=== PATIENT | female | born 1950 | race Caucasian/White ===

== ENCOUNTER 2017-02-18 11:13 | Inpatient (IN) ==
[2017-02-13 13:08] LABS: Basophils # (Auto) 0 K/mcL (0.0-0.3); Basophils % (Auto) 0.3 % (0.0-2.0); Eosinophils # (Auto) 0 K/mcL (0.0-0.7); Granulocytes % (Auto) 66.7 % (38.0-78.0); Lymphocytes % (Auto) 21.6 % (15.5-49.0); Mean Cell Volume 90.7 fL (80.0-100.0); Mean Corpuscular HGB Conc 34.6 g/dL (31.0-36.0); Mean Corpuscular Hemoglobin 31.4 pg (26.0-34.0); Monocytes # (Auto) 0.5 K/mcL (0.1-0.9); Monocytes % (Auto) 10.4 % (1.0-12.0); Platelet Count 170 K/mcL (140-440); RBC 3.93 M/mcL (4.00-5.20); Red Cell Distribution Width 12.3 % (11.5-14.5)
[2017-02-13 13:42] LABS: Blood Urea Nitrogen 9 mg/dl (8-23)
[2017-02-13 15:56] LABS: Appearance,Urine CLEAR; Bacteria,Urine 0 /hpf (0); Bilirubin,Urine NEG (NEG); Color,Urine YELLOW; Glucose,Urine (UA) NORM (NEG); Leukocyte Esterase,Urine NEG /uL (NEG); Nitrate,Urine NEG (NEG); Protein,Urine NEG (NEG); Specific Gravity,Urine 1.004 (1.000-1.035); Urine Blood TRACE ery/mcL (<5); Urine RBC 1 /hpf (0-1); Urine Squamous Epithelial Cell 0 /hpf (0-4); Urine WBC < 1 /hpf (0-4); Urobilinogen,Urine NORM (NEG)
[~2017-02-18 11:13] MED LIST: CELECOXIB 200 MG CAPSULE PO SCH; KETOROLAC 30 MG, ROPIVACAINE HCL/PF 49.5 ML, EPINEPHrine 0.5 MG, 0.9 % SODIUM CHLORIDE ... IJ SCH; PREGABALIN 75 MG CAPSULE PO SCH; ceFAZolin 1 GM VIAL IV SCH; oxyCODONE 10 MG TAB.ER.12H PO SCH
[2017-02-18] MEDS ORDERED: GENTAMICIN SULFATE 800 MG/20 ML VIAL IR ONE (15:02)
[2017-02-18] MEDS ORDERED: MEPERIDINE 25 MG/ML SYRINGE IV PRN (15:36)
[2017-02-18] MEDS ORDERED: fentaNYL 100 MCG/2 ML VIAL IV PRN (15:36)
[2017-02-18] MEDS ORDERED: IPRATROPIUM/ALBUTEROL 3 ML AMPUL.NEB NEB PRN (15:36)
[2017-02-18] MEDS ORDERED: METOPROLOL TARTRATE 5 MG/5 ML VIAL IV PRN (15:36)
[2017-02-18] MEDS ORDERED: ONDANSETRON 4 MG/2 ML VIAL IV PRN ×2 (15:36→16:07)
[2017-02-18] MEDS ORDERED: METHOCARBAMOL 1,000 MG/10 ML VIAL IV PRN (15:36)
[2017-02-18] MEDS ORDERED: BENZOCAINE/MENTHOL 1 LOZENGE PO PRN ×2 (15:36→16:07)
[2017-02-18] MEDS ORDERED: LACTATED RINGERS 1,000 ML IV SCH (15:45)
--- NOTE | 2017-02-18 16:06 | Brief Operative Note ---
Date of procedure: 02/18/17 Pre-op diagnosis: left knee oa Post-op diagnosis: same Procedure: left total knee arthroplasty Grafts/Implants: Yes Anesthesia: spinal Complications: none Surgeon: Manuel Serrano Sausage Machine Operator: Yudith De Jesus Estimated blood loss (cc): 100 Tourniquet Time (Minutes): 53 Specimens Removed/Pathology: none sent Condition: stable Disposition: PACU
[2017-02-18] MEDS ORDERED: POLYETHYLENE GLYCOL 3350 17 GM PACKET PO PRN (16:07)
[2017-02-18] MEDS ORDERED: TRANEXAMIC ACID 1,000 MG/10 ML VIAL IV ONE (16:07)
[2017-02-18] MEDS ORDERED: MAGNESIUM HYDROXIDE 30 ML ORAL.SUSP PO PRN (16:07)
[2017-02-18] MEDS ORDERED: HYDROmorphone 2 MG/ML SYRINGE IV PRN (16:07)
[2017-02-18] MEDS ORDERED: METHOCARBAMOL 750 MG TABLET PO PRN (16:07)
[2017-02-18] MEDS ORDERED: FLEETS ADULT ENEMA PR PRN (16:07)
[2017-02-18] MEDS ORDERED: BISACODYL 10 MG SUPP.RECT PR PRN (16:07)
--- NOTE | 2017-02-18 17:07 | XRay Report ---
HISTORY: Reason for Exam:Post-Op Total Knee FINDINGS: There is a well positioned total knee prosthesis. There is no fracture or abnormal soft tissue calcification. IMPRESSION: Well-positioned left knee prosthesis Interpreted and Authenticated by: Miles Camarena 02/18/17
[2017-02-18] MEDS ORDERED: PNEUMOCOCCAL 23-VAL P-SAC VAC 0.5 ML VIAL IM ONE (17:15)
[2017-02-18] MEDS ORDERED: FLU VACC QS2017-18 36MOS UP/PF 60 MCG/0.5 ML SYRINGE IM ONE (17:15)
--- NOTE | 2017-02-18 17:40 | Operative Note ---
DATE OF OPERATION: 02/18/2017 PREOPERATIVE DIAGNOSIS: Degenerative joint disease, left knee. POSTOPERATIVE DIAGNOSIS: Degenerative joint disease, left knee. PROCEDURE: Left total knee arthroplasty. SURGEON: Makenzie Serrano M.D. [employer]BE[employer]ZARD ABATEMENT WORKER SURGEON: Yudith De Jesus PA-C. ANESTHESIA: Spinal with LMA assist. ESTIMATED BLOOD LOSS: 100 mL. COMPLICATIONS: None noted. SPECIMENS REMOVED: None. DRAINS: None. TOURNIQUET TIME: 53 minutes at 300 mmHg. IMPLANTS: DePuy CMW2 bone cement 20 grams x4; DePuy Attune patella medialized dome 35 mm cemented AOX; DePuy Attune femoral posterior stabilized size 6 left narrow; DePuy Attune tibial base fixed bearing size 5 cemented; DePuy Attune fixed bearing posterior stabilized size 6, 5 mm AOX. INDICATIONS: The patient has had a long-standing history of worsening pain in the knee that has failed conservative treatment. Radiographs have confirmed advanced degenerative joint disease. After a long discussion about treatment options, the patient elected to proceed with a knee arthroplasty. The risks and benefits were discussed with the patient in detail including, but not limited to, the risks of anesthesia, problems with the heart or lungs related to anesthesia, infection, compromise or injury to the nerves and blood vessels, deep venous thrombosis, pulmonary embolism, pneumonia, continued pain after surgery, worsening pain or symptoms after surgery, swelling, loss of motion, instability, leg length discrepancy, and need for repeat surgery. DESCRIPTION OF PROCEDURE: The patient was seen in the pre-anesthesia waiting room where all questions were answered and the correct side and site were identified and marked. The patient was transferred to the operating room and administered the anesthetic and given pre-operative antibiotics. A time-out was then called. The extremity was prepped and draped, exsanguinated, and the tourniquet was inflated to 300 mmHg. A midline skin incision was then made with a standard medial parapatellar arthrotomy. Debridement of the menisci, ACL, and PCL was performed followed by balancing releases in the medial lateral plane. We then established intramedullary access to both the femur and tibia in a standard fashion. The femoral guide edmundo was initially placed with the distal femoral guide, pinned into place, and the distal femoral cut was performed and checked with a flat plate. We then turned our attention to the tibia. The intramedullary guide was placed with the proximal tibial cutting block. The block was appropriately positioned off the affected side, varus and valgus was checked with the extra-medullary guide, and the block was pinned into place. The proximal tibial cut was performed and the tibia was prepared for the tibial implant with appropriate rotation. The tibia, femur, and posterior compartment were debrided of osteophytes, loose bodies, and meniscal fragments We then used the gap balancing technique to balance extension with the first two cuts and good balancing was obtained with a 10 millimeter gap block. We turned our attention back to the femur and used the referencing block and implant to size appropriately. Using the gap balancing technique for the flexion space we set our rotation of the femur off the tibial cut. Anesthesia gave the patient 1 gram of Tranexamic Acid via an intravenous route. We placed the 4 in 1 cutting block and made anterior, posterior, and chamfer cuts. Box plasty cuts were then made in a standard fashion for the posterior stabilized prosthesis. We then completed osteophyte release and posterior capsule release from the posterior compartment. Trials were placed and we chose the polyethylene insert thickness that provided the best stability in all planes. With the trials in place, we did a measured resection for a resurfacing patella. We sized the patella and placed the patella trial and performed a lateral facetectomy with the saw and rongeur. Good tracking was obtained. We removed all trials, irrigated and dried all cut surfaces. We cemented the components into place including tibia, femur and patella. We placed a trial liner and held the knee in full extension with the patella compressed while the cement cured. We then removed all excess cement and placed the final polyethylene tibiofemoral component. Irrigation with 3 liters of antibiotic saline was then performed using jet-lavage. We let the tourniquet down and coagulated bleeding vessels. We injected a 100 cubic centimeter volume including Ropivacaine 49.25 cubic centimeters at 5 milligrams per cubic centimeter, Ketorolac 30 milligrams, and Epinephrine 0.5 milligrams into 100 cubic centimeters volume of normal saline. We placed a deep drain and closed the retinaculum with looped #0 Maxon. We closed the subcutaneous tissue and skin in layers out to bimal in the skin. A sterile pressure dressing was applied. All needle and sponge counts were correct. The patient was transferred to the recovery room in stable condition. EPIFANIO:[email or web address] Job ID: [id number] Doc ID: [id number] Makenzie Serrano MD
[2017-02-18] MEDS: KETOROLAC 15 MG/ML VIAL IV SCH ×2 (18:15→23:48)
[2017-02-18] MEDS: 0.9 % SODIUM CHLORIDE 1,000 ML IV SCH (18:15)
[2017-02-18] MEDS ORDERED: SENNOSIDES 1 TABLET PO SCH (21:00)
[2017-02-18] MEDS: ASPIRIN 325 MG ENTERIC COATED TABLET PO SCH (21:00)
[2017-02-18] MEDS: DOCUSATE SODIUM 100 MG CAPSULE PO SCH (21:00)
[2017-02-18] MEDS: ceFAZolin 1 GM VIAL IV SCH (21:01)
[2017-02-18] MEDS ORDERED: 0.9 % SODIUM CHLORIDE 10 ML SYRINGE IV SCH (22:00)
[2017-02-18] MEDS: HYDROcodone/APAP 10/325MG TABLET PO PRN (22:36)
[2017-02-19] MEDS: 0.9 % SODIUM CHLORIDE 1,000 ML IV SCH (00:33)
[2017-02-19] MEDS: HYDROcodone/APAP 10/325MG TABLET PO PRN ×2 (04:31→08:21)
[2017-02-19] MEDS: KETOROLAC 15 MG/ML VIAL IV SCH (05:32)
[2017-02-19] MEDS: ceFAZolin 1 GM VIAL IV SCH (05:32)
--- NOTE | 2017-02-19 07:23 | Discharge Summary ---
Providers - Providers Patient information: Note initiated : 02/19/17 at 7:21 am Service Date, if different from initiated Date: [] Patient: Marivel Vaughn 66 y/o F admitted on 02/18/17 for Left Total Knee Arthroplasty. Chief Complaint: [POD #1 s/p left TKA Patient is doing well this morning. She reports minimal pain and is ready for discharge. She denies numbness, tingling, or calf pain. No questions or concerns at this time.] Discharge date: 02/19/17 Hospitalization Hospital course: Patient was brought to the hospital for a left TKA that went on without event. She was admitted overnight for pain control and observation. She will d/c to home today and f/u in clinic in 2 weeks. Discharge diagnosis: left knee osteoarthritis Exam - Exam Incision healing: Yes Incision draining: No Incision red: No Incision swollen: No Incision inflamed: No Clean and dry: Yes Weight bearing status: as tolerated (with assistive device) Range of motion: acceptable flexion, extension Ortho Discharge - TKA - Patient Instructions Diet: Regular Diet Activity: activity as tolerated, ambulate with assistive device, weight bearing as tolerated Total Knee Protocol: For Total Knee: Start ROM ADAMA with stationary bike or rocking chair. Work on gaining full extension of knee. Posterior dislocation precautions provided. Hip abductor strengthening and gait training instructions provided. Apply Cryocuff as instructed. Dressing Care: May shower in 2 days, Other (leave dermabond in place) - Follow Up Plan Follow Up Appointments: Manuel Serrano MD [Physician] - 03/05/17 (in 2 weeks) Disposition: Home, Self-Care Prognosis: Fair Rehab Potential: Fair Overall status at discharge: patient is progressing back to baseline - Orders For Discharge Prescriptions: Aspirin [Ecotrin] 325 tab PO BID #60 tab.ec HYDROcodone/APAP 10/325MG [[place] 10/325Mg] 1 - 2 tab PO Q4HP PRN #60 tab PRN Reason: Pain Additional Discharge Orders: Physical Therapy at Discharge - TKA Location: Determined By Patient Pending Studies Resuscitation Status Full Code Diet Regular Diet Start Fri 3 Dinner Hydrocodone Bitart/Acetaminophen ([place] 10/325mg) 0 tab PO Q4HP PRN PRN Reason: Pain Last Admin: 02/19/17 04:31 Dose: 1 tab Admin: 02/18/17 22:36 Dose: 1 tab Aspirin (Ecotrin) 325 mg PO BID [facility] Last Admin: 02/18/17 21:00 Dose: 325 mg Docusate Sodium (Colace) 100 mg PO BID [facility] Last Admin: 02/18/17 21:00 Dose: 100 mg Sodium Chloride (Sodium Chloride 0.9%) 1,000 mls @ 125 mls/hr IV .Q8H [facility] Last Admin: 02/19/17 00:33 Dose: Infusion: 02/19/17 00:33 Dose: 0 mls/hr Admin: 02/18/17 18:15 Dose: 125 mls/hr Ketorolac Tromethamine (Toradol) 15 mg IV Q6 [facility] Stop: 02/20/17 12:01 Last Admin: 02/19/17 05:32 Dose: 15 mg Admin: 02/18/17 23:48 Dose: 15 mg Admin: 02/18/17 18:15 Dose: 15 mg Senna (Senokot) 2 tab PO HS [facility] Last Admin: 02/18/17 21:00 Dose: 2 tab Sodium Chloride (Saline Flush) 10 ml IV Q8 [facility] Last Admin: 02/18/17 22:43 Dose: Not Given Shift Summary 02/19/17 01:35 Shift Summary by Maria Ines Mac Patient is alert and oriented x 4. She ambulated in the halls using a FWW and SBA. Patient states the "numbness" is wearing off. CSM is normal to toes on the left foot. CPM therapy tolerated well. Cryotherapy on and off all shift. Dressing to left knee is CDI. Patient voided 800mls this evening - with a PRV of <10. She c/o mild pain x 1. Lortab given with good effect. Toradol given as scheduled. IV saline locked as patient is tolerating PO intake with no n/v. Initialized on 02/19/17 01:35 - END OF NOTE Objective Vital Signs Temp Pulse Resp BP Pulse Ox 02/19/17 03:38 97.8 F 84 16 104/54 96 02/18/17 23:50 97.5 F 66 16 131/72 100 02/18/17 19:57 97.0 F 63 18 154/79 95 02/18/17 18:57 68 148/82 100 10/03/17 18:27 76 125/73 02/18/17 17:52 62 143/82 100 02/18/17 17:42 63 135/83 99 02/18/17 17:27 61 137/85 100 02/18/17 17:12 96.6 F L 65 18 131/81 100 02/18/17 17:07 97.6 F 67 12 120/55 100 02/18/17 16:50 97.6 F 70 16 118/62 100 02/18/17 16:36 97.4 F 68 14 97/47 100 02/18/17 11:13 97.8 F 85 16 148/80 98 - Intake & Output Intake & Output: Intake & Output 02/18/17 02/19/17 02/19/17 21:59 05:59 13:59 Intake Total 1900 / 1900 888 / 888 Output Total 100 / 100 1750 / 1750 Balance 1800 / 1800 -862 / -862 Weight 156 lb 11.2 oz Intake: IV 788 / 788 Sodium Chloride 0.9% 1,000 ml @ 788 / 788 125 mls/hr IV .Q8H [facility] Rx#: [id number] Oral 100 / 100 IV - Manual Only 1900 / 1900 Output: Void Amount 1750 / 1750 Estimated Blood Loss 100 / 100 Other: # Voids 1 1 - Physical Examination General: Appears Well, No Apparent Distress Neuro: Motor Function Intact, Sensory Function Intact Extremities cardiology: Normal Lower Extr. Pulses - Labs and Meds CBC 02/19/17 Range/Units 05:00 Hgb 10.3 L (12.0-15.0) g/dL Hct 30.0 L (36.0-48.0) % Current Medications Generic Name Dose Route Start Last Admin Trade Name Freq PRN Reason Stop Dose Admin Hydrocodone Bitart/Acetaminophen 0 tab 02/18/17 16:07 02/19/17 04:31 [place] 10/325mg PO 1 tab Q4HP PRN Administration Pain Aspirin 325 mg 02/18/17 21:00 02/18/17 21:00 Ecotrin PO 325 mg BID [facility] Administration Bisacodyl 10 mg 02/18/17 16:07 Dulcolax W[place] Q2-3DAYS PRN Constipation Docusate Sodium 100 mg 02/18/17 21:00 02/18/17 21:00 Colace PO 100 mg BID [facility] Administration Hydromorphone HCl 0 mg 02/18/17 16:07 Dilaudid IV Q2HP PRN Pain Sodium Chloride 1,000 mls @ 125 mls/hr 02/18/17 16:15 02/19/17 00:33 Sodium Chloride 0.9% IV 0 mls/hr .Q8H [facility] Infusion Ketorolac Tromethamine 15 mg 02/18/17 18:00 02/19/17 05:32 Toradol IV 02/20/17 12:01 15 mg Q6 [facility] Administration Magnesium Hydroxide 30 ml 02/18/17 16:07 Milk Of Magnesia PO BIDP PRN Constipation Methocarbamol 750 mg 02/18/17 16:07 Robaxin PO Q6HP PRN Muscle Spasm Ondansetron HCl 4 mg 02/18/17 16:07 Zofran IV Q4HP PRN Nausea And Vomiting [Phentermine Hcl] 15 1 dose 02/19/17 09:00 Mg PO DAILY [facility] Polyethylene Glycol 17 gm 02/18/17 16:07 Miralax PO DAILYP PRN Constipation Senna 2 tab 02/18/17 21:00 02/18/17 21:00 Senokot PO 2 tab HS [facility] Administration Sodium Biphosphate/Sodium Phosphate 1 dose 02/18/17 16:07 Fleets Adult [place] Q3-4DAYS PRN Constipation Sodium Chloride 10 ml 02/18/17 22:00 02/18/17 22:43 Saline Flush IV Not Given Q8 [facility] Throat Lozenges 1 lozenge 02/18/17 16:07 Cepacol PO PRN PRN Sore Throat Intake and Output 02/18/17 02/19/17 02/19/17 21:59 05:59 13:59 Intake Total 1900 / 1900 888 / 888 Output Total 100 / 100 1750 / 1750 Balance 1800 / 1800 -862 / -862 Intake: IV 788 / 788 Sodium Chloride 0.9% 1,000 ml @ 788 / 788 125 mls/hr IV .Q8H [facility] Rx#: [id number] Oral 100 / 100 IV - Manual Only 1900 / 1900 Output: Void Amount 1750 / 1750 Estimated Blood Loss 100 / 100 Other: # Voids 1 1 Weight 156 lb 11.2 oz
[2017-02-19] MEDS: ASPIRIN 325 MG ENTERIC COATED TABLET PO SCH (08:22)
[2017-02-19] MEDS: DOCUSATE SODIUM 100 MG CAPSULE PO SCH (08:22)
[2017-02-19] MEDS ORDERED: PHENTERMINE HCL 15 MG PO SCH (09:00)
[2017-02-19] MEDS ORDERED: FLU VACC QS2017-18 36MOS UP/PF 60 MCG/0.5 ML SYRINGE IM ONE (09:30)
[2017-02-19] MEDS ORDERED: PNEUMOCOCCAL 23-VAL P-SAC VAC 0.5 ML VIAL IM ONE (09:30)
== END 2017-02-19 09:45 | disposition home or self-care (01) | DRG 470 ==
LOC: MEDSUR 11:13
PROVIDERS: ADMIT Orthopaedic Surgery Sports Medicine; ATTEND Orthopaedic Surgery Sports Medicine

== ENCOUNTER 2018-02-03 09:30 | Inpatient (IN) ==
[2018-01-28 18:18] LABS: Appearance,Urine CLEAR; Bacteria,Urine 0 /hpf (0); Bilirubin,Urine NEG (NEG); Color,Urine YELLOW; Glucose,Urine (UA) NEGATIVE (NEG); Leukocyte Esterase,Urine NEG /uL (NEG); Mucus,Urine FEW /hpf (0); Protein,Urine NEG (NEG); Specific Gravity,Urine 1.018 (1.000-1.035); Urine Blood 0.03 mg/dL (<0.03); Urine RBC 2 /hpf (0-1); Urine Squamous Epithelial Cell 0 /hpf (0-4); Urine WBC 1 /hpf (0-4); Urobilinogen,Urine NEG (NEG)
[2018-01-28 18:36] LABS: Basophils # (Auto) 0 K/mcL (0.0-0.3); Basophils % (Auto) 0.3 % (0.0-2.0); Eosinophils # (Auto) 0 K/mcL (0.0-0.7); Eosinophils % (Auto) 0 % (0.0-7.0); Granulocytes % (Auto) 64.1 % (38.0-78.0); Lymphocytes # (Auto) 1.5 K/mcL (1.5-4.8); Lymphocytes % (Auto) 26.7 % (15.5-49.0); Mean Cell Volume 91.3 fL (80.0-100.0); Mean Corpuscular HGB Conc 34.3 g/dL (31.0-36.0); Mean Corpuscular Hemoglobin 31.3 pg (26.0-34.0); Monocytes # (Auto) 0.5 K/mcL (0.1-0.9); Monocytes % (Auto) 8.9 % (1.0-12.0); Platelet Count 201 K/mcL (140-440); RBC 4.09 M/mcL (4.00-5.20); Red Cell Distribution Width 12.4 % (11.5-14.5)
[2018-01-28 18:43] LABS: Blood Urea Nitrogen 18 mg/dl (8-23)
[~2018-02-03 09:30] MED LIST changes: +0.9 % SODIUM CHLORIDE 9 ML, KETOROLAC 30 MG, ROPIVACAINE HCL/PF 49.5 ML, EPINEPHrine 0.... IJ SCH; -KETOROLAC 30 MG, ROPIVACAINE HCL/PF 49.5 ML, EPINEPHrine 0.5 MG, 0.9 % SODIUM CHLORIDE ... IJ SCH
[2018-02-03] MEDS ORDERED: CELECOXIB 200 MG CAPSULE PO ONE (11:11)
[2018-02-03] MEDS ORDERED: PREGABALIN 100 MG CAPSULE PO ONE (11:11)
[2018-02-03] MEDS ORDERED: oxyCODONE 10 MG TAB.ER.12H PO SCH (11:15)
[2018-02-03] MEDS ORDERED: oxyCODONE 10 MG TAB.ER.12H PO ONE (11:45)
[2018-02-03] MEDS ORDERED: PREGABALIN 75 MG CAPSULE PO ONE (11:45)
[2018-02-03] MEDS ORDERED: 0.9 % SODIUM CHLORIDE 9 ML, KETOROLAC 30 MG, ROPIVACAINE HCL/PF 49.5 ML, EPINEPHrine 0.... IJ SCH (12:00)
[2018-02-03] MEDS ORDERED: GENTAMICIN SULFATE 800 MG/20 ML VIAL IR ONE (12:12)
[2018-02-03] MEDS ORDERED: MIDAZOLAM 2 MG/2 ML VIAL IV ONE (12:35)
[2018-02-03] MEDS ORDERED: ONDANSETRON 4 MG/2 ML VIAL IV ONE (12:35)
[2018-02-03] MEDS ORDERED: PROPOFOL 200 MG/20 ML VIAL IV ONE (12:35)
[2018-02-03] MEDS ORDERED: GLYCOPYRROLATE 0.2 MG/ML VIAL IV ONE (12:35)
[2018-02-03] MEDS ORDERED: TRANEXAMIC ACID 1,000 MG/10 ML VIAL IV ONE (12:35)
[2018-02-03] MEDS ORDERED: LIDOCAINE HCL/PF 100 MG/5 ML SYRINGE IV ONE (12:35)
[2018-02-03] MEDS ORDERED: ROPIVACAINE HCL/PF 30 ML VIAL IJ ONE (12:35)
[2018-02-03] MEDS ORDERED: KETAMINE 100 MG/ML ML IV ONE (12:35)
--- NOTE | 2018-02-03 13:58 | Brief Operative Note ---
Date of procedure: 02/03/18 Pre-op diagnosis: right knee oa Post-op diagnosis: same Procedure: right total knee arthroplasty Grafts/Implants: Yes Anesthesia: spinal Complications: none Surgeon: Manuel Serrano Design Transferrer: Yudith De Jesus Estimated blood loss (cc): 150 Tourniquet Time (Minutes): 47 Specimens Removed/Pathology: none sent Condition: stable Disposition: PACU
[2018-02-03] MEDS ORDERED: TRANEXAMIC ACID 1,000 MG/10 ML VIAL IV SCH (13:59)
[2018-02-03] MEDS ORDERED: ONDANSETRON 4 MG/2 ML VIAL IV PRN (13:59)
[2018-02-03] MEDS ORDERED: POLYETHYLENE GLYCOL 3350 17 GM PACKET PO PRN (13:59)
[2018-02-03] MEDS ORDERED: BISACODYL 10 MG SUPP.RECT PR PRN (13:59)
[2018-02-03] MEDS ORDERED: METHOCARBAMOL 750 MG TABLET PO PRN (13:59)
[2018-02-03] MEDS ORDERED: BENZOCAINE/MENTHOL 1 LOZENGE PO PRN (13:59)
[2018-02-03] MEDS ORDERED: ONDANSETRON ODT 4 MG TABLET SL PRN (13:59)
[2018-02-03] MEDS ORDERED: MAGNESIUM HYDROXIDE 30 ML ORAL.SUSP PO PRN (13:59)
[2018-02-03] MEDS ORDERED: FLEETS ADULT ENEMA PR PRN (13:59)
[2018-02-03] MEDS ORDERED: PROMETHAZINE 25 MG/ML VIAL IV PRN (14:32)
[2018-02-03] MEDS ORDERED: METHOCARBAMOL 1,000 MG/10 ML VIAL IV PRN (14:32)
[2018-02-03] MEDS ORDERED: ACETAMINOPHEN 850 MG/85 ML BOTTLE IV ONE (14:32)
[2018-02-03] MEDS ORDERED: IPRATROPIUM/ALBUTEROL 3 ML AMPUL.NEB NEB PRN (14:32)
[2018-02-03] MEDS ORDERED: fentaNYL 100 MCG/2 ML VIAL IV PRN (14:32)
[2018-02-03] MEDS ORDERED: MEPERIDINE 25 MG/ML SYRINGE IV PRN (14:32)
--- NOTE | 2018-02-03 14:34 | Operative Note ---
DATE OF OPERATION: 02/03/2018 PREOPERATIVE DIAGNOSIS: Degenerative joint disease, right knee. POSTOPERATIVE DIAGNOSIS: Degenerative joint disease, right knee. PROCEDURE: Right total knee arthroplasty. SURGEON: Makenzie Serrano M.D. CHARGE COORDINATOR SURGEON: Yudith De Jesus PA-C. ANESTHESIA: Spinal with LMA assist. ESTIMATED BLOOD LOSS: 150 mL. COMPLICATIONS: None noted. SPECIMENS REMOVED: None. DRAINS: None. TOURNIQUET TIME: 47 minutes at 300 mmHg. IMPLANTS: DePuy CMW2 bone cement 20 grams x4; DePuy Attune femoral posterior stabilized, size 6 right narrow; DePuy Attune tibial insert fixed bearing posterior stabilized, size 6, 8 mm AOX; DePuy Attune tibial base fixed bearing, size 5 cemented; DePuy Attune patella medialized dome, 35 mm cemented AOX. INDICATIONS: The patient has had a long-standing history of worsening pain in the knee that has failed conservative treatment. Radiographs have confirmed advanced degenerative joint disease. After a long discussion about treatment options, the patient elected to proceed with a knee arthroplasty. The risks and benefits were discussed with the patient in detail including, but not limited to, the risks of anesthesia, problems with the heart or lungs related to anesthesia, infection, compromise or injury to the nerves and blood vessels, deep venous thrombosis, pulmonary embolism, pneumonia, continued pain after surgery, worsening pain or symptoms after surgery, swelling, loss of motion, instability, leg length discrepancy, and need for repeat surgery. DESCRIPTION OF PROCEDURE: The patient was seen in the pre-anesthesia waiting room where all questions were answered and the correct side and site were identified and marked. The patient was transferred to the operating room and administered the anesthetic and given pre-operative antibiotics. A time-out was then called. The extremity was prepped and draped, exsanguinated, and the tourniquet was inflated to 300 mmHg. A midline skin incision was then made with a standard medial parapatellar arthrotomy. Debridement of the menisci, ACL, and PCL was performed followed by balancing releases in the medial lateral plane. We then established intramedullary access to both the femur and tibia in a standard fashion. The femoral guide edmundo was initially placed with the distal femoral guide, pinned into place, and the distal femoral cut was performed and checked with a flat plate. We then turned our attention to the tibia. The intramedullary guide was placed with the proximal tibial cutting block. The block was appropriately positioned off the affected side, varus and valgus was checked with the extra-medullary guide, and the block was pinned into place. The proximal tibial cut was performed and the tibia was prepared for the tibial implant with appropriate rotation. The tibia, femur, and posterior compartment were debrided of osteophytes, loose bodies, and meniscal fragments We then used the gap balancing technique to balance extension with the first two cuts and good balancing was obtained with a 10 millimeter gap block. We turned our attention back to the femur and used the referencing block and implant to size appropriately. Using the gap balancing technique for the flexion space we set our rotation of the femur off the tibial cut. Anesthesia gave the patient 1 gram of Tranexamic Acid via an intravenous route. We placed the 4 in 1 cutting block and made anterior, posterior, and chamfer cuts. Box plasty cuts were then made in a standard fashion for the posterior stabilized prosthesis. We then completed osteophyte release and posterior capsule release from the posterior compartment. Trials were placed and we chose the polyethylene insert thickness that provided the best stability in all planes. With the trials in place, we did a measured resection for a resurfacing patella. We sized the patella and placed the patella trial and performed a lateral facetectomy with the saw and rongeur. Good tracking was obtained. We removed all trials, irrigated and dried all cut surfaces. We cemented the components into place including tibia, femur and patella. We placed a trial liner and held the knee in full extension with the patella compressed while the cement cured. We then removed all excess cement and placed the final polyethylene tibiofemoral component. Irrigation with 3 liters of antibiotic saline was then performed using jet-lavage. We let the tourniquet down and coagulated bleeding vessels. We injected a 100 cubic centimeter volume including Ropivacaine 49.25 cubic centimeters at 5 milligrams per cubic centimeter, Ketorolac 30 milligrams, and Epinephrine 0.5 milligrams into 100 cubic centimeters volume of normal saline. We closed the retinaculum with #2 Stratafix and 0 Vicryl. We closed the subcutaneous tissue and skin in layers out to Dermabond on the skin. A sterile pressure dressing was applied. All needle and sponge counts were correct. The patient was transferred to the recovery room in stable condition. oCra Job ID: [id number] Doc ID: [id number] Makenzie Serrano MD
[2018-02-03] MEDS ORDERED: LACTATED RINGERS 1,000 ML IV SCH (14:45)
--- NOTE | 2018-02-03 15:00 | XRay Report ---
CLINICAL INFORMATION: ITS.REASON: Post-Op Total Knee COMPARISON: None. FINDINGS: Total knee prostheses is anatomically aligned. No osseous abnormality. Soft tissue swelling seen as expected IMPRESSION: Negative Interpreted and Authenticated by: Manuel Bishop 02/03/18
[2018-02-03] MEDS: 0.9 % SODIUM CHLORIDE 10 ML SYRINGE IV SCH ×2 (15:31→20:37)
[2018-02-03] MEDS: 0.9 % SODIUM CHLORIDE 1,000 ML IV SCH ×2 (15:32→23:33)
[2018-02-03] MEDS: KETOROLAC 15 MG/ML VIAL IV SCH ×2 (17:33→23:33)
[2018-02-03] MEDS: ceFAZolin 1 GM VIAL IV SCH (19:33)
[2018-02-03] MEDS: ASPIRIN 325 MG ENTERIC COATED TABLET PO SCH (20:36)
[2018-02-03] MEDS: DOCUSATE SODIUM 100 MG CAPSULE PO SCH (20:37)
[2018-02-03] MEDS ORDERED: SENNOSIDES 1 TABLET PO SCH (21:00)
[2018-02-04] MEDS: ceFAZolin 1 GM VIAL IV SCH (04:31)
[2018-02-04] MEDS: HYDROcodone/APAP 10/325MG TABLET PO PRN ×3 (04:31→12:21)
[2018-02-04] MEDS: KETOROLAC 15 MG/ML VIAL IV SCH ×2 (06:06→12:21)
[2018-02-04] MEDS: 0.9 % SODIUM CHLORIDE 10 ML SYRINGE IV SCH ×2 (06:07→12:22)
[2018-02-04] MEDS: 0.9 % SODIUM CHLORIDE 1,000 ML IV SCH (06:14)
--- NOTE | 2018-02-04 08:00 | Orthopedic Progress Note ---
Subjective Patient information: Note initiated : 02/04/18 at 7:58 am Service Date, if different from initiated Date: [] Patient: Marivel Vaughn 67 y/o F admitted on 02/03/18 for Right Total Knee Arthroplasty. Chief Complaint: [] Interval history: doing well. foot drop. no pain Objective Vital signs: Vital Signs Temp Pulse Resp BP Pulse Ox 02/04/18 04:40 97.1 F 74 18 118/66 96 02/03/18 23:06 97.8 F 69 17 109/61 96 02/03/18 19:59 97.5 F 72 20 130/71 98 02/03/18 16:46 55 L 152/83 98 02/03/18 16:16 54 L 156/80 100 02/03/18 15:46 74 149/83 100 02/03/18 15:31 63 148/80 100 02/03/18 15:16 69 146/74 100 02/03/18 15:04 97.4 F 71 18 137/61 100 02/03/18 14:51 75 11 L 141/63 99 02/03/18 14:35 82 12 138/74 98 02/03/18 14:30 83 13 133/63 99 02/03/18 14:25 83 12 130/60 99 02/03/18 14:20 98 F 94 H 12 126/63 99 02/03/18 12:00 97.3 F 67 14 131/73 99 02/03/18 10:13 98 02/03/18 09:46 96.5 F L 78 14 147/80 100 Intake and Output 02/03/18 02/04/18 02/04/18 21:59 05:59 13:59 Intake Total 2565 / 2565 1100 / 1100 833 / 833 Output Total 540 / 540 1550 / 1550 Balance 2024 / 2024 -450 / -450 833 / 833 Intake: IV 85 / 85 1000 / 1000 833 / 833 Sodium Chloride 0.9% 1,000 ml @ 1000 / 1000 833 / 833 125 mls/hr IV .Q8H [facility] Rx#: [id number] Oral 480 / 480 100 / 100 IV - Manual Only 1999 Output: Void Amount 475 / 475 1550 / 1550 Estimated Blood Loss 65 / 65 Other: Meal Dinner Percent of Meal Consumed 100% Feeding Ability Independent Urine Color Bright Yellow Urine Odor Normal # Voids 1 1 Weight 152 lb Intake & Output: Intake & Output 02/03/18 02/04/18 02/04/18 21:59 05:59 13:59 Intake Total 2565 / 2565 1100 / 1100 833 / 833 Output Total 540 / 540 1550 / 1550 Balance 2024 -450 / -450 833 / 833 Weight 152 lb Intake: IV 85 / 85 1000 / 1000 833 / 833 Sodium Chloride 0.9% 1,000 ml @ 1000 / 1000 833 / 833 125 mls/hr IV .Q8H [facility] Rx#: [id number] Oral 480 / 480 100 / 100 IV - Manual Only 1999 Output: Void Amount 475 / 475 1550 / 1550 Estimated Blood Loss 65 / 65 Other: Meal Dinner Percent of Meal Consumed 100% Feeding Ability Independent Urine Color Bright Yellow Urine Odor Normal # Voids 1 1 Incision: Yes healing Incision clean and dry: Yes Dressing: Yes clean, Yes dry, Yes intact Weight bearing status: full Neurological exam IM: Yes alert, Yes motor sensory deficit (foot drop, sensation intact), Yes normal gait, Yes oriented X3, Yes neurovascular intact Extremities exam IM: No calf tenderness, Yes tenderness, Yes Foot pink and warm , Yes neurovascular intact - Labs CBC & BMP: 02/04/18 03:50 01/28/18 15:22 Labs: Orthopedic Labs 01/28/18 15:23 PT 12.8 INR 1.0 02/04/18 01/28/18 03:50 15:23 Hgb 9.6 L 12.8 Hct 28.6 L 37.4 Assessment and Plan (1) Knee osteoarthritis pod 1 s/p tka wbat pain control d/c planning - home today watch foot drop anticipate resolution Status: Acute
--- NOTE | 2018-02-04 08:01 | Discharge Summary ---
Ortho Discharge - TKA - Patient Instructions Diet: Regular Diet Activity: activity as tolerated, ambulate with assistive device, weight bearing as tolerated Total Knee Protocol: For Total Knee: Start ROM ADAMA with stationary bike or rocking chair. Work on gaining full extension of knee. Posterior dislocation precautions provided. Hip abductor strengthening and gait training instructions provided. Apply Cryocuff as instructed. Dressing Care: May shower in 2 days Patient Education: Total Knee Replacement (DC) - Problem Maintenance (1) Knee osteoarthritis Status: Acute - Follow Up Plan Follow Up Appointments: Yudith De Jesus PA-C [Physician Bird Sitter] - 02/18/18 1:40 pm Disposition: Home, Self-Care Prognosis: Good Rehab Potential: Good I certify that the patient requires SNF services: No Overall status at discharge: patient is progressing back to baseline
[2018-02-04] MEDS ORDERED: PHENTERMINE HCL 15 MG PO SCH (09:00)
[2018-02-04] MEDS: DOCUSATE SODIUM 100 MG CAPSULE PO SCH (09:00)
[2018-02-04] MEDS: ASPIRIN 325 MG ENTERIC COATED TABLET PO SCH (09:00)
== END 2018-02-04 13:40 | disposition home or self-care (01) | DRG 470 ==
LOC: MEDSUR 09:30
PROVIDERS: ADMIT Orthopaedic Surgery Sports Medicine; ATTEND Orthopaedic Surgery Sports Medicine